=== PATIENT | male | born 1985 | race Caucasian/White ===

== ENCOUNTER 2016-08-19 18:10 | Emergency (ER) | payer BC, OTHER ==
[2016-08-19 18:54] VITALS: BP 120/85; PULSE 77; RESP 20; TEMP 99.3; O2SAT 100
== END 2016-08-19 19:30 | disposition home or self-care (01) | DRG 563 ==
LOC: ED 18:10
DX: S86.911A Strain of unspecified muscle(s) and tendon(s) at lower leg level, right leg, initial encounter (principal)
CPT/HCPCS: 99282

== ENCOUNTER 2017-07-11 09:50 | Outpatient (CLI) | payer OTHER ==
[2016-08-19 18:54] VITALS: O2SAT 100
== END 2017-07-11 09:51 | disposition home or self-care (01) | DRG 561 ==
LOC: CONVCARE 09:50
PROVIDERS: ATTEND Orthopaedic Surgery
DX: Z47.89 Encounter for other orthopedic aftercare (principal); M79.661 Pain in right lower leg; Z98.890 Other specified postprocedural states

== ENCOUNTER 2017-08-09 08:29 | Outpatient (CLI) | payer OTHER ==
[2016-08-19 18:54] VITALS: O2SAT 100
== END 2017-08-09 08:30 | disposition home or self-care (01) | DRG 561 ==
LOC: CONVCARE 08:29
PROVIDERS: ATTEND Orthopaedic Surgery
DX: Z47.89 Encounter for other orthopedic aftercare (principal); M25.461 Effusion, right knee; Z87.39 Personal history of other diseases of the musculoskeletal system and connective tissue; Z98.890 Other specified postprocedural states
CPT/HCPCS: 73560